=== PATIENT | male | born 1940 | race Caucasian/White ===

== ENCOUNTER 2021-11-21 10:34 | Emergency (ER) | payer MEDICARE, SELFPAY ==
[2021-11-21 10:45] VITALS: BP 127/76; PULSE 79; RESP 18; TEMP 36.3; O2SAT 98
--- NOTE | 2021-11-21 11:12 | ED.ABDPAIN ---
HPI - Abdominal Pain General Chief Complaint: Abdominal Pain Stated Complaint: Stomach Pain Time Seen by Provider: 11/21/21 10:51 Source: patient Mode of arrival: ambulatory Limitations: no limitations History of Present Illness HPI narrative: Patient presents today complaining of generalized abdominal pain since yesterday. He has also had a couple of episodes of vomiting that started yesterday, 2 today as well. As well as decreased appetite and constipation. States he has not had a bowel movement in 1-1/2 to 2 days. Denies diarrhea, fever, urinary symptoms. He has taken 2 doses of 3 Ex-Lax 6 hours apart and has had some prune juice without results. He rates his abdominal pain 5/10.Patient has history of rectal cancer and recently had a clear colonoscopy. Related Data Home Medications Medication Instructions Recorded Confirmed amlodipine 10 mg tablet 10 mg PO DAILY 11/21/21 11/21/21 famotidine 40 mg tablet 40 mg PO DAILY 11/21/21 11/21/21 fenofibrate 160 mg tablet 160 mg PO DAILY 11/21/21 11/21/21 finasteride 5 mg tablet 5 mg PO DAILY 11/21/21 11/21/21 fluticasone propionate 50 2 spray intranasal DAILY 11/21/21 11/21/21 mcg/actuation nasal spray,suspension glipizide 10 mg tablet 10 mg PO DAILY 11/21/21 11/21/21 insulin glargine U-300 conc 300 1 unit subcut DIRECTED 11/21/21 11/21/21 unit/mL (1.5 mL) subcutaneous pen (Toujeo SoloStar U-300 Insulin) insulin lispro 100 unit/mL 1 unit subcut DIRECTED 11/21/21 11/21/21 subcutaneous pen metoprolol succinate 25 mg 25 mg PO DAILY 11/21/21 11/21/21 tablet,extended release 24 hr pen needle, diabetic 31 gauge x 11/21/21 11/21/21 1/ (Droplet Pen Needle) tamsulosin 0.4 mg capsule 0.4 mg PO DAILY 11/21/21 11/21/21 valsartan 320 1 tablet PO DAILY 11/21/21 11/21/21 mg-hydrochlorothiazide 25 mg tablet Allergies Allergy/AdvReac Type Severity Reaction Status Date / Time No Known Allergies Allergy Mild Verified 11/21/21 10:36 Review of Systems Review of Systems: CONSTITUTIONAL: Denies body aches, fever, chills, or sweats. EYES: Denies visual changes, redness, or discharge. ENT: Denies rhinorrhea, congestion, sore throat, or otalgia. CARDIOVASCULAR: Denies chest pain, palpitations, or edema. RESPIRATORY: Denies cough or dyspnea. GASTROINTESTINAL: Denies diarrhea.+Abdominal pain, constipation, decreased appetite, nausea, vomiting GENITOURINARY: Denies dysuria or hematuria. SKIN: Denies rash, itching, or wounds. MUSCULOSKELETAL: Denies back pain, joint pain, or myalgia. NEUROLOGIC: Denies headache, numbness, tingling, or weakness. PSYCH: Denies depression or anxiety. PMFSH Comments At time of signature, I have reviewed and agree with nursing past medical, surgical, social and family history unless otherwise noted. Please see nursing chart for further information. There is no relevant family history pertinent to the presenting complaint Exam Narrative: GENERAL: Well-appearing, well-nourished, and in no acute distress. HEAD: Normocephalic, atraumatic. EYES: EOMI. No redness or drainage. Conjunctivae normal. ENT: Mucous membranes pink and moist. NECK: Normal AROM. Supple. No lymphadenopathy. CHEST: No respiratory distress. Clear to auscultation. HEART: Regular rate and rhythm. No murmur appreciated. Normal peripheral pulses. ABDOMEN: Soft, , nondistended, normal active bowel sounds. +Generalized abdominal tenderness without rebound or guarding, Most severe in the left lower quadrant. MUSCULOSKELETAL: No bony tenderness. EXTREMITIES: Normal range of motion. No edema. SKIN: Warm, dry, no rash. Capillary refill normal. Normal skin turgor. NEURO: No focal deficits. Alert and oriented x3. Gait steady. PSYCH: Normal affect. No signs of depression or anxiety. Course Course Level of Care: Express Care Visit Vital Signs Vital signs: Vital Signs Temperature 97.3 F L 11/21/21 10:45 Pulse Rate 79 11/21/21 10:45 Respiratory Rate 18 11/21
== END 2021-11-21 11:26 | disposition short-term general hospital (02) ==
PROVIDERS: Emergency Provider Nurse Practitioner
DX: R10.84 Generalized abdominal pain (principal); K59.00 Constipation, unspecified; R11.2 Nausea with vomiting, unspecified; R19.7 Diarrhea, unspecified; E78.00 Pure hypercholesterolemia, unspecified; I10 Essential (primary) hypertension; K21.9 Gastro-esophageal reflux disease without esophagitis; N40.0 Benign prostatic hyperplasia without lower urinary tract symptoms; E11.9 Type 2 diabetes mellitus without complications; Z79.4 Long term (current) use of insulin
CPT/HCPCS: 99212; G0463